=== PATIENT | female | born 1990 | race Caucasian/White ===

== ENCOUNTER 2017-01-26 00:39 | Emergency (ER) | payer OTHER ==
[2017-01-26 00:46] VITALS: RESP 16
[2017-01-26] MEDS ORDERED: KETOROLAC TROMETHAMINE 30 MG/ML SOL IM ONE (00:46)
[2017-01-26] MEDS ORDERED: APAP/HYDROCODONE 325/5 TAB PO ONE (00:47)
[2017-01-26] MEDS ORDERED: KETOROLAC TROMETHAMINE 30 MG/ML SOL ONE (00:48)
[2017-01-26] MEDS ORDERED: APAP/HYDROCODONE 325/5 TAB ONE (00:48)
[2017-01-26 01:55] VITALS: O2SAT 98
[2017-01-26 01:56] VITALS: BP 117/51; PULSE 65; TEMP 97.8
== END 2017-01-26 01:52 | disposition home or self-care (01) ==
LOC: ED 00:39
DX: G89.29 Other chronic pain (principal); M54.5 Low back pain
CPT/HCPCS: 96372; 99283; J1885

== ENCOUNTER 2017-02-13 06:09 | Emergency (ER) | payer OTHER ==
[2017-02-13 06:10] VITALS: O2SAT 98
[2017-02-13 07:21] VITALS: BP 114/79; PULSE 86; RESP 18; TEMP 96.8
== END 2017-02-13 07:30 | disposition home or self-care (01) ==
LOC: ED 06:09
DX: L03.221 Cellulitis of neck (principal)
CPT/HCPCS: 99282

== ENCOUNTER 2017-06-11 00:14 | Emergency (ER) | payer OTHER ==
[2017-06-11] MEDS ORDERED: ACETAMINOPHEN 325 MG PO ONE (00:38)
[2017-06-11] MEDS ORDERED: ONDANSETRON 4 MG ODT BU ONE (00:38)
[2017-06-11] MEDS ORDERED: ACETAMINOPHEN 325 MG ONE (01:01)
[2017-06-11] MEDS ORDERED: ONDANSETRON 4 MG ODT ONE (01:01)
[2017-06-11 01:13] LABS: ALBUMIN 3.6 gm/dl (3.4-5.0); BILIRUBIN,TOTAL 0.5 mg/dl (0.2-1.0); CALCIUM 9.2 mg/dl (8.5-10.1); CREATININE 0.67 mg/dl (0.60-1.00); POTASSIUM 3.3 mMol/L (3.5-5.1); TOTAL PROTEIN 6.9 gm/dl (6.4-8.2)
[2017-06-11 01:15] LABS: BASOPHILS % (AUTO) 1 % (0-3); EOSINOPHILS % (AUTO) 1 % (0-9); HEMATOCRIT 38 % (35-47); HEMOGLOBIN 13.6 gm/dl (12.0-15.5); MEAN CORPUSCULAR HEMOGLOBIN 29.6 pg (27.0-32.0); MEAN CORPUSCULAR HGB CONC 36.1 gm/dl (32.0-36.0); MEAN CORPUSCULAR VOLUME 82 fL (81-99); MONOCYTES % (AUTO) 6.5 % (0-12)
[2017-06-11 01:34] LABS: APPEARANCE,URINE Clear; BILIRUBIN,URINE NEGATIVE (NEGATIVE); COLOR,URINE Yellow; GLUCOSE, URINE (UA) TRACE (NEGATIVE); KETONES,URINE 2+ (NEGATIVE); LEUKOCYTE ESTERASE ,URINE NEGATIVE (NEGATIVE); NITRATE,URINE NEGATIVE (NEGATIVE); OCCULT BLOOD,URINE NEGATIVE (NEG-TRACE); UROBILINOGEN,URINE 0.2 (0.2-1.0 EU)
[2017-06-11 01:47] LABS: BACTERIA NEGATIVE (< 1+); CRYSTALS NEGATIVE (0-3 AVE/HPF); RBC,URINE NEG (0-3AV/HPF); WBC,URINE 0-2 (0-5AV/HPF)
[2017-06-11] MEDS ORDERED: SODIUM CHLORIDE 0.9% 1000ML 1,000 ML IV ONE (01:58)
[2017-06-11 02:10] VITALS: RESP 20
[2017-06-11 02:26] VITALS: BP 145/94; PULSE 84; TEMP 97.7; O2SAT 99
== END 2017-06-11 03:18 | disposition home or self-care (01) ==
LOC: ED 00:14
DX: O26.891 Other specified pregnancy related conditions, first trimester (principal); Z3A.09 9 weeks gestation of pregnancy; R11.0 Nausea
CPT/HCPCS: 36415; 80053; 81001; 82150; 84703; 85025; 99283; A9270-GY